=== PATIENT | female | born 1965 | race Two or more races ===

== ENCOUNTER 2025-06-07 09:15 | Emergency (ER) | payer MEDICAID, OTHER ==
[~2025-06-07] VITALS: Ht 157.5 cm; Wt 55.0 kg
[2025-06-07] MEDS: ACETAMINOPHEN 325 MG TAB PO ONE (10:30)
--- NOTE | 2025-06-07 10:39 | ED.PDOC ---
History of Present Illness HPI Comments 59-year-old female who is Syriac-speaking presents to the ER with a chief complaint of a dog bite. Patient reports on walking on the side of the the road earlier this morning with 0800, when a dog jumped over a fence in bit the patient on the right calf leaving puncture wounds. Patient states the the dog was a possible Pit-bull and that her vaccines are up-to-date. Patient is unknown if the dog's vaccines are up-to-date but states the it is a family pet. Denies any other symptoms at this time. Denies chills, fever, N/V/D, SOB, CP. No other associated symptoms, modifiers, recent injuries or sick contacts present at this time. Chief Complaint: Abrasion Time Seen by MD: 10:35 Reviewed Notes: Nurses Notes, Medications, Allergies Allergies: Coded Allergies: NO KNOWN ALLERGIES (Unverified , 06/07/25) Information Source: Patient Mode of Arrival: EMS Severity: Moderate Timing: Hours Duration: Since onset, Hours Prehospital treatment: None Past Medical History PAST MEDICAL HISTORY: Denies Surgical History: Denies all surgeries DRILLER MACHINE History: No Pertinent DRILLER MACHINE History Family History Family History: Reviewed,noncontributory to illness, Unknown Social History Smoker: Non-Smoker Alcohol: Denies ETOH Use Drugs: Denies Drug Use Lives In: Home Constitutional: denies: chills, diaphoresis, fatigue, fever, malaise, sweats, weakness, others EENTM: denies: blurred vision, double vision, ear bleeding, ear discharge, ear drainage, ear pain, ear ringing, eye pain, eye redness, hearing loss, mouth pain, mouth swelling, nasal discharge, nose bleeding, nose congestion, nose pain, photophobia, tearing, throat pain, throat swelling, voice changes, others Respiratory: denies: cough, hemoptysis, orthopnea, SOB at rest, shortness of breath, SOB with excertion, stridor, wheezing, others Cardiovascular: denies: chest pain, dizzy spells, diaphoresis, Dyspnea on exertion, edema, irregular heart beat, left arm pain, lightheadedness, palpitations, PND, syncope, others Gastrointestinal: denies: abdomen distended, abdominal pain, blood streaked bowels, constipated, diarrhea, dysphagia, difficulty swallowing, hematemesis, melena, nausea, poor appetite, poor fluid intake, rectal bleeding, rectal pain, vomiting, others Genitourinary: denies: abnormal vagina bleeding, burning, dyspareunia, dysuria, flank pain, frequency, hematuria, incontinence, pain, , vagina discharge, urgency, others Neurological: denies: dizziness, fainting, headache, left sided numbness, left sided weakness, numbness, paresthesia, pre-existing deficit, right sided numbness, right sided weakness, seizure, speech problems, tingling, tremors, weakness, others Musculoskeletal: denies: back pain, gout, joint pain, joint swelling, muscle pain, muscle stiffness, neck pain, others Integumetry: reports: others (Small puncture wounds to the right calf status post dog bite); denies: bruises, change in color, change in hair/nails, dryness, laceration, lesions, lumps, rash, wounds Allergic/Immunocompromised: denies: Difficulty Healing, Frequent Infections, Hives, Itching, others Hematologic/Lymphatic: denies: anemia, blood clots, easy bleeding, easy bruising, swollen glands, others Endocrine: denies: excessive hunger, excessive sweating, excessive thirst, excessive urination, flushing, intolerance to cold, intolerance to heat, unexplained weight gain, unexplained weight loss, others Psychiatric: denies: anxiety, bipolar disorder, depression, hopeless, panic disorder, schizophrenia, sleepless, suicidal, others All Other Systems: Reviewed and Negative Physical Exam Exam Comments Small puncture wounds to the right calf General Appearance: No Apparent Distress, Normal HEENT: Normal ENT Inspection, Pharynx Normal, TMs Normal Neck: Full Range of Motion, Non-Tender, Normal, Normal Inspection Respiratory: Chest Non-Tender, Lungs Clear, No Accessory Muscle Use, No Respiratory Distress, Normal Breath Sounds Cardiovascular: No Edema, No JVD, No Murmur, No Gallop, Normal Peripheral Pulses, Regular Rate/Rhythm Breast Exam: Deferred Gastrointestinal: No Organomegaly, Non Tender, No Pulsatile Mass, Normal Bowel Sounds, Soft Genitalia: Deferred Pelvic: Deferred Rectal: Deferred Extremities: No calf tenderness, Normal capillary refill, Normal inspection, Normal range of motion, Non-tender, No pedal edema Musculoskeletal : Apperance: Normal Neurologic: Alert, nurse manager II-XII nml as Tested, No Motor Deficits, Normal Affect, Normal Mood, No Sensory Deficits Cerebellar Function: Normal Reflexes: Normal Skin: Dry, Normal Color, Warm Lymphatic: No Adenopathy Was a procedure done? Was a procedure done?: No Differential Dx Considerations may include: Dog bite X-Ray, Labs, Meds, VS Vital Signs Date Time Temp Pulse Resp B/P (MAP) Pulse Ox O2 Delivery O2 Flow Rate FiO2 06/07/25 12:23 98.4 72 18 122/66 (84) 97 98.4 06/07/25 12:23 72 18 97 Room Air 06/07/25 09:20 97.6 88 16 142/71 97 97.6 Current Medications Medications (Trade) Dose Ordered Sig/David Route Start Time Stop Time Status Last Admin Diphtheria/ Tetanus/Acell Pertussis (Boostrix T-Dap) 0.5 ml ONCE ONCE IM 06/07/25 10:30 06/07/25 10:31 DC 06/07/25 12:39 Time of 1ST Reevaluation: 11:05 Reevaluation 1ST: Unchanged Patient Education/Counseling: Diagnosis, Treatment, Prognosis Family Education/Counseling: No Family Present SEPSIS Sepsis Screen Date sepsis recognized/suspect: Jun 07, 2025 Time Sepsis recognized/suspect: 922 Recent Procedure: No On Antibiotic Therapy: No Respiratory Rate >20: No Heart Rate >90: No Temp<36 C (96.8 F) or >38.3 C: No SBP <90 or MAP <65 mmHG: No New Acute Mental Status Change: No Is the patient on CPAP, BIPAP,: No Vital Signs Date Time Temp Pulse Resp B/P (MAP) Pulse Ox O2 Delivery O2 Flow Rate FiO2 06/07/25 12:23 98.4 72 18 122/66 (84) 97 98.4 06/07/25 12:23 72 18 97 Room Air 06/07/25 09:20 97.6 88 16 142/71 97 97.6 Medications Medications Dose Ordered Sig/David Route Start Time Stop Time Status Last Admin Dose Admin Diphtheria/ Tetanus/Acell Pertussis 0.5 ml ONCE ONCE IM 06/07/25 10:30 06/07/25 10:31 DC 06/07/25 12:39 Departure 1 Departure Time of Disposition: 12:49 (Patient with a dog bite. Small puncture wound. Was a domestic dog. We will discharge) Impression: Primary Impression: Dog bite Disposition: 01 HOME / SELF CARE / HOMELESS Condition: Stable Additional Instructions: Your bit by dog. Your tetanus was updated. Please keep the area clean and wash it twice a day with gentle soap and water. For pain you can take the followinam: Ibuprofen 400mg with food Noon: Acetaminophen 1000mg 4pm: Ibuprofen 400mg with food 8pm: Acetaminophen 1000mg You should follow up with your regular doctor within one week to ensure you are doing better. If your symptoms worsen or you have any other concerns then please return to the ER. Discharged With: Self Critical Care Note Critical Care Time?: No Stability Stability form required: No I personally scribed for NEGRA NEWMAN MD ([email or web address]) on 06/07/25 at 10:39. Electronically submitted by Antonio Loco ([email or web address]). NEGRA NEWMAN MD Jun 07, 2025 10:39
[2025-06-07 12:23] VITALS: BP 122/66; PULSE 72; RESP 18; TEMP 98.4; O2SAT 97
[2025-06-07] MEDS: TETANUS-DIPTH-ACEL PERTUSSIS 0.5ML SYR Tdap IM ONE (12:39)
== END 2025-06-07 13:05 | disposition home or self-care (01) ==
LOC: ER 09:15 → EDBD 09:15 → ER 13:05
DX: S81.831A Puncture wound without foreign body, right lower leg, initial encounter (principal); S81.851A Open bite, right lower leg, initial encounter; W54.0XXA Bitten by dog, initial encounter; Y93.89 Activity, other specified; Y92.89 Other specified places as the place of occurrence of the external cause; Y99.8 Other external cause status
CPT/HCPCS: 90471; 90715

== ENCOUNTER 2025-06-09 08:40 | Emergency (ER) | payer MEDICAID ==
[~2025-06-09] VITALS: Ht 154.9 cm; Wt 56.5 kg
[2025-06-09 10:01] VITALS: BP 139/81; PULSE 71; RESP 18; TEMP 98.7; O2SAT 96
[2025-06-09] MEDS ORDERED: AUG875T PO (10:06)
--- NOTE | 2025-06-09 10:08 | ED.PDOC ---
History of Present Illness(SKN HPI Comments The patient with a history of diabetes presents for evaluation of a puncture wound sustained three days before this visit. The patient reports receiving a tetanus shot and wound cleansing after the injury. There is no report of redness or other concerning symptoms. Chief Complaint: Animal Bite Time Seen by MD: 09:06 History of Present Illness: Nurses Notes, Medications, Allergies Allergies: Coded Allergies: NO KNOWN ALLERGIES (Unverified , 06/07/25) Information Source: Patient Mode of Arrival: Ambulatory Past Medical History PAST MEDICAL HISTORY: Denies Surgical History: Denies all surgeries ANTHROPOLOGY PROFESSOR History: No Pertinent ANTHROPOLOGY PROFESSOR History Family History Family History: Reviewed,noncontributory to illness, Unknown Social History Smoker: Non-Smoker Alcohol: Denies ETOH Use Drugs: Denies Drug Use Lives In: Home All Other Systems: Reviewed and Negative (PER HPI) Physical Exam General Appearance: No Apparent Distress, Normal HEENT: Normal ENT Inspection, Pharynx Normal, TMs Normal Neck: Full Range of Motion, Non-Tender, Normal, Normal Inspection Respiratory: Chest Non-Tender, Lungs Clear, No Accessory Muscle Use, No Respiratory Distress, Normal Breath Sounds Cardiovascular: No Edema, No JVD, No Murmur, No Gallop, Normal Peripheral Pulses, Regular Rate/Rhythm Breast Exam: Deferred Gastrointestinal: No Organomegaly, Non Tender, No Pulsatile Mass, Normal Bowel Sounds, Soft Genitalia: Deferred Pelvic: Deferred Rectal: Deferred Extremities: No calf tenderness, Normal capillary refill, Normal inspection, Normal range of motion, Non-tender, No pedal edema Musculoskeletal : Apperance: Normal Neurologic: Alert, tape editor II-XII nml as Tested, No Motor Deficits, Normal Affect, Normal Mood, No Sensory Deficits Cerebellar Function: Normal Reflexes: Normal Skin: Dry, Normal Color, Warm Lymphatic: No Adenopathy Was a procedure done? Was a procedure done?: No Differential Diagnosis (INTG) Differential Diagnosis: Abrasion, Cellulitis, Hematoma, Insect Envenomation, Laceration X-Ray, Labs, Meds, VS Vital Signs Date Time Temp Pulse Resp B/P (MAP) Pulse Ox O2 Delivery O2 Flow Rate FiO2 06/09/25 10:01 98.7 71 18 139/81 (100) 96 98.7 06/09/25 10:01 71 18 96 Room Air 06/09/25 08:41 98.7 71 18 139/81 96 98.7 X-Ray, Labs, Meds, VS Comment . Examination shows no evidence of cellulitis, lymphangitis, systemic infection or any other process requiring immediate medical or surgical intervention at this time. BASED ON SHOW DECISION-MAKING PATIENT AGREED TO EMPIRIC TREATMENT. PATIENT IS STABLE FOR DISCHARGE AT THIS TIME. EXTERNAL NOTES REVIEWED. TEST RESULTS AND DIAGNOSTIC IMAGING INTERPRETED. ALL DIAGNOSTIC FINDINGS, DISCHARGE CARE, EDUCATION AND INSTRUCTIONS PROVIDED FOLLOW-UP WITH PCP IN 2 TO 3 DAYS PATIENT VERBALIZED UNDERSTANDING AND AGREED TO TREATMENT PLAN VITAL SIGNS STABLE, AFEBRILE, NO ACUTE DISTRESS NOTED PATIENT AMBULATORY WITH STRONG STEADY GAIT ADVISED TO RETURN PRECAUTIONS FOR ANY NEW OR WORSENING SYMPTOMS, RETURN TO ER IMMEDIATELY FOR RE-EVALUATION PATIENT IS AWARE THAT THE PURPOSE OF THIS VISIT WAS FOR AN ACUTE MEDICAL EMERGENCY REQUIRING EMERGENT STABILIZATION. CHRONIC CONDITIONS, INCLUDING MALIGNANCIES HAVE NOT BEEN RULED OUT. PATIENT IS INSTRUCTED TO FOLLOW UP WITH PCP DIRECTED AND DISCHARGE INSTRUCTIONS FOR CONTINUED CARE AND WORKUP. IF UNABLE TO ARRANGE FOLLOW-UP, PATIENT IS TO RETURN TO THE EMERGENCY DEPARTMENT FOR REASSESSMENT. PATIENT (PARENT OR LEGAL GUARDIAN IF APPLICABLE) WAS GIVEN VERBAL AND WRITTEN DISCHARGE INSTRUCTIONS AND ACKNOWLEDGES UNDERSTANDING. Time of 1ST Reevaluation: 10:07 Reevaluation 1ST: Improved Patient Education/Counseling: Diagnosis, Treatment Family Education/Counseling: Diagnosis, Treatment SEPSIS Sepsis Screen Date sepsis recognized/suspect: Jun 09, 2025 Time Sepsis recognized/suspect: 0843 Recent Procedure: No On Antibiotic Therapy: No Respiratory Rate >20: No Heart Rate >90: No Temp<36 C (96.8 F) or >38.3 C: No SBP <90 or MAP <65 mmHG: No New Acute Mental Status Change: No Is the patient on CPAP, BIPAP,: No Vital Signs Date Time Temp Pulse Resp B/P (MAP) Pulse Ox O2 Delivery O2 Flow Rate FiO2 06/09/25 10:01 98.7 71 18 139/81 (100) 96 98.7 06/09/25 10:01 71 18 96 Room Air 06/09/25 08:41 98.7 71 18 139/81 96 98.7 Departure 1 Departure Time of Disposition: 10:06 Impression: Primary Impression: Dog bite Qualified Codes: W54.0XXS - Bitten by dog, sequela Disposition: HOME / SELF CARE / HOMELESS Condition: Stable e-Prescriptions Amoxicillin & Pot Clavulanate (AUGMENTIN TABLET) 875 Mg Tb 875 MG PO BID for 7 Days, #14 TAB 0 Refills Prov: MARCELINO GUZMAN NP 06/09/25 Critical Care Note Critical Care Time?: No Stability Stability form required: No Heart Score Heart Score: Heart Score Response (Comments) Value History N/A 0 EKG N/A 0 Age N/A 0 Risk Factors N/A 0 Troponin N/A 0 Total 0 MARCELINO GUZMAN NP Jun 09, 2025 10:08
== END 2025-06-09 10:10 | disposition home or self-care (01) ==
LOC: ER 08:40
DX: S81.831A Puncture wound without foreign body, right lower leg, initial encounter (principal); E11.9 Type 2 diabetes mellitus without complications; W54.0XXA Bitten by dog, initial encounter; Y93.89 Activity, other specified; Y92.89 Other specified places as the place of occurrence of the external cause; Y99.8 Other external cause status

== ENCOUNTER 2025-06-13 17:58 | Emergency (ER) | payer MEDICAID ==
[~2025-06-13 17:58] MED LIST: AUG875T PO
== END 2025-06-13 17:59 | disposition left against medical advice (07) ==
LOC: ER 17:58
DX: Z48.00 Encounter for change or removal of nonsurgical wound dressing (principal); Z53.21 Procedure and treatment not carried out due to patient leaving prior to being seen by health care provider